=== PATIENT | male | born 1950 | race Caucasian/White ===

== ENCOUNTER 2017-04-29 13:40 | Emergency (ER) | payer MEDICARE, BC, OTHER ==
[2017-04-29] MEDS ORDERED: Lorazepam 2 MG/ML VIAL ONE (14:41)
[2017-04-29] MEDS ORDERED: Ketorolac Tromethamine 30 MG/ML VIAL ONE (14:42)
[2017-04-29] MEDS ORDERED: Dexamethasone 4 mg/ml Vial ONE (14:42)
--- NOTE | 2017-04-29 15:37 | RAD ---
LUMBAR SPINE 3 VIEWS: History Low back pain. COMPARISON: 08/20/15. FINDINGS: There are 5 lumbar-type vertebrae. Right pedicle screws and vertical nanette remain in place at the lum bosacral junction without perihardware lucency. Other pedicles are intact. Vertebral body height a nd alignment are maintained. Osteophytosis is present throughout the vertebral bodies and facets. IMPRESSION: Stable postoperative and degenerative changes of the lumbar spine. No evidence of compression fract ure. POS: [facility]
== END 2017-04-29 16:16 | disposition home or self-care (01) ==
LOC: ERS 13:40
DX: M54.10 Radiculopathy, site unspecified (principal); K21.9 Gastro-esophageal reflux disease without esophagitis; I10 Essential (primary) hypertension; Z79.82 Long term (current) use of aspirin; Z79.891 Long term (current) use of opiate analgesic; Z79.899 Other long term (current) drug therapy; Z87.891 Personal history of nicotine dependence
CPT/HCPCS: 72100; 96374; 96375; J1100; J1885; J2060; J2270

== ENCOUNTER 2017-06-20 13:45 | Outpatient (CLI) | payer MEDICARE, BC, OTHER ==
--- NOTE | 2017-06-21 09:18 | PET ---
PET IMAGING OF BRAIN: HISTORY: Dementia. Short-term memory loss. COMPARISON: None. TECHNIQUE: Patient was administered 11.28 mCi F18-FDG and whole imaging of the brain was performed. FINDINGS: There is homogeneous and expected distribution of the F18-FDG. No evidence of decreased radiotracer l ocalization. No evidence of decreased metabolic activity. IMPRESSION: No evidence of decreased metabolic activity. POS: [facility]
== END 2017-06-20 13:46 | disposition home or self-care (01) ==
LOC: PET 13:45
PROVIDERS: ATTEND Psychiatry & Neurology Neurology
DX: G31.1 Senile degeneration of brain, not elsewhere classified (principal)
CPT/HCPCS: 78608; A9552

== ENCOUNTER 2019-07-13 09:21 | Emergency (ER) | payer MEDICARE, BC, OTHER ==
[2019-07-13] MEDS ORDERED: Ketorolac Tromethamine 30 MG/ML VIAL ONE (09:44)
[2019-07-13 10:16] LABS: #Eosinphils 0.1 thou/uL (0.0-0.7); #Lymphocytes 0.9 thou/uL (1.20-3.40); #Monocytes 1.3 thou/uL (0.11-0.59); #Neutrophils 6.9 thou/uL (1.40-6.50); %Basophils 0.1 % (0.0-1.0); %Eosinophils 0.8 % (0.0-10.0); %Lymphocytes 9.7 % (21.0-51.0); %Monocytes 13.6 % (0.0-10.0); %Neutrophils 75.8 % (42.0-75.0); Mean Corpuscular HGB CONC 33.3 g/dL (32.0-36.0); Mean Corpuscular Hemoglobin 29.9 pg (27.0-31.0); Mean Corpuscular Volume 89.9 fL (78.0-98.0); Mean Platelet Volume 7.5 fL (7.4-10.4); Platelet Count 137 thou/uL (130-400); RBC Distribution Width 12.6 % (11.5-14.5); Red Blood Cell (RBC) Count 5.33 mill/uL (4.70-6.10); White Blood Cell (WBC) Count 9.1 thou/uL (4.8-10.8)
--- NOTE | 2019-07-13 10:30 | RAD ---
EXAM: Two views chest PROVIDED CLINICAL HISTORY: None COMPARISON: None FINDINGS: Cardiac and mediastinal silhouette appears within normal limits. Lungs appear free of significant opa city. No pleural fluid or pneumothorax apparent. Nonspecific gaseous distention of bowel. IMPRESSION: No evidence for an acute cardiopulmonary process.
[2019-07-13 10:31] LABS: ALT (SGPT) 17 U/L (8-55); AST (SGOT) 19 U/L (5-34); Albumin 4.3 g/dL (3.4-4.8); Alkaline Phosphatase 83 U/L (40-110); Anion Gap 16 mmol/L (10-20); BUN (Urea Nitrogen) 22 mg/dL (8.4-25.7); Bilirubin, Total 1.2 mg/dL (0.2-1.2); Calc. Creatinine Clearance 0 mL/min (70-130); Calcium 9.9 mg/dL (7.8-10.44); Carbon Dioxide 27 mmol/L (23-31); Chloride 102 mmol/L (98-107); Estimated GFR-MDRD 46; Glucose 200 mg/dL (80-115); Potassium 4.6 mmol/L (3.5-5.1); Protein, Total 7.3 g/dL (5.8-8.1); Sodium 140 mmol/L (136-145)
== END 2019-07-13 11:40 | disposition home or self-care (01) ==
LOC: ERS 09:21
DX: J11.1 Influenza due to unidentified influenza virus with other respiratory manifestations (principal); R73.9 Hyperglycemia, unspecified; K21.9 Gastro-esophageal reflux disease without esophagitis; I10 Essential (primary) hypertension; Z87.891 Personal history of nicotine dependence; Z79.82 Long term (current) use of aspirin; Z79.899 Other long term (current) drug therapy; Z79.891 Long term (current) use of opiate analgesic
CPT/HCPCS: 71046; 80053; 83605; 85025; 87040; 87804; 96361; 96374; J1885

== ENCOUNTER 2019-08-23 19:30 | Outpatient (CLI) | payer MEDICARE, BC, OTHER | END 2019-08-23 19:31 | disposition home or self-care (01) | LOC: SLEEPLAB 19:30 | PROVIDERS: ATTEND Internal Medicine Pulmonary Disease | DX: G47.33 Obstructive sleep apnea (adult) (pediatric) (principal); R53.83 Other fatigue; K21.9 Gastro-esophageal reflux disease without esophagitis; E66.9 Obesity, unspecified; R06.83 Snoring; I49.9 Cardiac arrhythmia, unspecified; G47.00 Insomnia, unspecified; G47.10 Hypersomnia, unspecified; G47.61 Periodic limb movement disorder; Z68.29 Body mass index [BMI] 29.0-29.9, adult | CPT/HCPCS: 95810 ==

== ENCOUNTER 2020-04-20 09:23 | Outpatient (CLI) | payer MEDICARE, BC, OTHER ==
[~2020-04-20 09:23] MED LIST: Magnevist 469MG/ML 20 ML VIAL ONE
--- NOTE | 2020-04-20 11:09 | MRI ---
MRI LUMBAR SPINE WITH AND WITHOUT CONTRAST: DATE: 04/20/2020 HISTORY: 69-year-old male with degenerative disc disease, lumbar, and leg pain, M 51.36, and M 79.606 COMPARISON: 08/20/2015 TECHNIQUE: Multiple sequences obtained in axial and sagittal planes, pre and post IV injection of gadolinium-bas ed contrast agent. FINDINGS: There are 5 lumbar-type vertebrae. Vertebral body heights are maintained. Normal bone marrow signal. Conus medullaris terminates at upper L2. T12-L1:Mild to moderate disc space narrowing. Mild disc bulge. No central or neural foraminal stenosi s. L1-2:Mild disc space narrowing. Mild disc bulge. Mild left neural foraminal stenosis. No high-grade r ight neural foraminal stenosis. No central spinal canal stenosis. L2-3:Disc space maintained. No central spinal canal stenosis. No high-grade neural foraminal stenosis . Mild disc bulge encroaches upon bilateral neural foramina slightly. L3-4:Disc space maintained. Mild disc bulge. Mild disc bulge encroachment and mild degenerative facet hypertrophy encroachment upon bilateral neural foramina, causing mild to moderate right neural foraminal stenosis. There is moderate left neural foraminal stenosis due to a superimposed focal left foraminal disc herniation.This lateral and far lateral neural foraminal stenosis appears either similar to or minimally worse than before. No central spinal canal stenosis. Moderate ligamentum flav um thickening. L4-5:No right neural foraminal stenosis. Mild to moderate left neural foraminal stenosis. No central spinal canal stenosis. Mild disc bulge. Mild disc space narrowing. L5-S1:Unilateral right L5 and S1 pedicle screws. Mild to moderate disc space narrowing. Mixed signal material within the disc space probably represents osseous bridges between the endplates. Circumferential disc/osteophyte complex, with right paracentral focal component that indents the righ t ventral aspect of thecal sac, chronically abutting the right S1 nerve root. Despite this, no significant central spinal canal stenosis. Partial ankylosis of left facet joint, and probable total ankylosis of right facet joint. Moderate right and mild to moderate left neural foraminal stenosis. No significant interval change identified. IMPRESSION: 1) old posterior lumbar fusion with unilateral right pedicle screws at L5-S1, resulting in successful ankylosis. 2) moderate right neural foraminal stenosis at L5-S1. 3) no central spinal canal stenosis at any level. 4) no major interval change since 08/20/2015.
--- NOTE | 2020-04-20 11:14 | RAD ---
Exam: 2 views lumbar spine COMPARISON: 04/29/2017 HISTORY: Degenerative disc disease. Leg pain. FINDINGS: Redemonstration of unilateral right-sided transpedicular screw at L5 and S1. No perihardwar e lucency. Stable degenerative disc disease at L5-S1. Vertebral body heights are maintained. No fracture IMPRESSION: Stable fusion changes at L5-S1.
== END 2020-04-20 09:24 | disposition home or self-care (01) ==
LOC: BICMRI 09:23
PROVIDERS: ATTEND Neurological Surgery
DX: M51.36 Other intervertebral disc degeneration, lumbar region (principal); M79.606 Pain in leg, unspecified; M48.07 Spinal stenosis, lumbosacral region; M43.27 Fusion of spine, lumbosacral region; Z98.1 Arthrodesis status
CPT/HCPCS: 72100; 72158; 82565; A9579

== ENCOUNTER 2020-05-12 13:28 | Outpatient (CLI) | payer MEDICARE, BC, OTHER ==
--- NOTE | 2020-05-12 15:01 | MRI ---
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 Calvarium: Appropriate T1 marrow signal intensity Midline brain parenchyma: Unremarkable Cerebrum:No parenchymal mass, mass effect or midline shift. Age-appropriate brain volume. Cortical gr ay-white matter differentiation is preserved. Scattered T2 and FLAIR white matter hyperintensities due to chronic small vessel ischemic change. Ventricles: No evidence of hydrocephalus. Sinuses and mastoid air cells: Mild mucosal thickening of the ethmoid air cells and frontal sinuses Diffusion: Central arterial flow is maintained. Absent restricted diffusion. Postcontrast images: No pathologic enhancement of the brain parenchyma. IMPRESSION: 1. Age-appropriate atrophy. 2. Absent restricted diffusion. No acute infarct. 3. No pathologic enhancement of the brain parenchyma.
== END 2020-05-12 13:29 | disposition home or self-care (01) ==
LOC: TBSIIMAG 13:28
PROVIDERS: ATTEND Neurological Surgery
DX: R26.81 Unsteadiness on feet (principal); G31.89 Other specified degenerative diseases of nervous system
CPT/HCPCS: 70553; 82565; A9579

== ENCOUNTER 2020-11-23 00:05 | Emergency (ER) | payer MEDICARE, BC, OTHER ==
[2020-11-23 01:55] LABS: Anion Gap 14 mmol/L (10-20); BUN (Urea Nitrogen) 29 mg/dL (8.4-25.7); CK (CPK) 92 U/L (30-200); Calc. Creatinine Clearance 0 mL/min (70-130); Calcium 9.4 mg/dL (7.8-10.44); Carbon Dioxide 23 mmol/L (23-31); Chloride 107 mmol/L (98-107); Potassium 4.5 mmol/L (3.5-5.1); Sodium 139 mmol/L (136-145)
[2020-11-23 01:56] LABS: Glucose 111 mg/dL (83-110)
== END 2020-11-23 02:37 | disposition home or self-care (01) ==
LOC: ERS 00:05
DX: M62.838 Other muscle spasm (principal); K21.9 Gastro-esophageal reflux disease without esophagitis; I10 Essential (primary) hypertension; Z87.891 Personal history of nicotine dependence; Z79.899 Other long term (current) drug therapy; Z79.82 Long term (current) use of aspirin
CPT/HCPCS: 36415; 80048; 82550

== ENCOUNTER 2020-12-28 06:53 | Outpatient (CLI) | payer MEDICARE, BC, OTHER ==
[2020-12-23 15:42] VITALS: BMI 30.7
[2020-12-28 07:59] VITALS: BP 148/99; TEMP 97.9
[2020-12-28] MEDS ORDERED: Iopamidol-M 200 41% 20 ML VIAL ONE (09:08)
== END 2020-12-28 09:50 | disposition home or self-care (01) ==
LOC: RAD 06:53
PROVIDERS: ATTEND Neurological Surgery
DX: M54.16 Radiculopathy, lumbar region (principal); M48.061 Spinal stenosis, lumbar region without neurogenic claudication; M48.07 Spinal stenosis, lumbosacral region; Z98.1 Arthrodesis status
CPT/HCPCS: 62304; 72132

== ENCOUNTER 2022-06-08 08:17 | Outpatient (CLI) | payer MEDICARE, BC, OTHER ==
[2022-06-08] MEDS ORDERED: Magnevist 469MG/ML 20 ML VIAL ONE (11:25)
== END 2022-06-08 08:18 | disposition home or self-care (01) ==
LOC: TBSIIMAG 08:17
PROVIDERS: ATTEND Urology
DX: R97.20 Elevated prostate specific antigen [PSA] (principal)
CPT/HCPCS: 72197; A9579

== ENCOUNTER 2022-07-12 07:57 | Outpatient (CLI) | payer MEDICARE, BC, OTHER ==
[2022-07-12] MEDS ORDERED: Iopamidol 370 76% 100 ML VIAL ONE (15:56)
== END 2022-07-12 07:58 | disposition home or self-care (01) ==
LOC: CT 07:57
PROVIDERS: ATTEND Urology
DX: R31.0 Gross hematuria (principal); N20.0 Calculus of kidney; N28.1 Cyst of kidney, acquired; N40.0 Benign prostatic hyperplasia without lower urinary tract symptoms; N32.89 Other specified disorders of bladder; Z98.890 Other specified postprocedural states
CPT/HCPCS: 74178; 82565; Q9967

== ENCOUNTER 2023-03-08 14:53 | Inpatient (IN) | payer MEDICARE, BC, OTHER ==
[~2023-03-08 14:53] MED LIST changes: +Iopamidol-370 76% 500 ML MDV (1 ML CHARGE) ONE; -Magnevist 469MG/ML 20 ML VIAL ONE
[2023-03-08 15:49] LABS: #Monocytes 1.4 thou/uL (0.11-0.59); #Neutrophils 5.2 thou/uL (1.40-6.50); %Basophils 0.3 % (0.0-1.0); %Eosinophils 0.5 % (0.0-10.0); %Lymphocytes 10.8 % (21.0-51.0); %Monocytes 18.3 % (0.0-10.0); %Neutrophils 69.7 % (42.0-75.0); Hematocrit 45.2 % (42.0-52.0); Hemoglobin 14.9 g/dL (14.0-18.0); Mean Corpuscular Hemoglobin 28.9 pg (27.0-31.0); Mean Corpuscular Volume 87.8 fl (78.0-98.0); Mean Platelet Volume 9.8 fL (7.4-10.4); Platelet Count 148 10x3/uL (130-400); RBC Distribution Width 13.1 % (11.5-14.5); Red Blood Cell (RBC) Count 5.15 mill/uL (4.70-6.10); White Blood Cell (WBC) Count 7.4 10x3/uL (4.8-10.8)
[2023-03-08 16:17] LABS: Bacteria/HPF 4+ HPF (None Seen); Bilirubin Negative (Negative); Blood, Urine 3+ (Negative); CAUTI Indications for Culture Pelvic or flank pain; Clarity Turbid (Clear); Glucose, Urine (Dipstick) Normal (Negative); Ketone, Urine Negative (Negative); Leukocyte 500 Leu/uL (Negative); Nitrite 1+ (Negative); Protein, Urine (Dipstick) 200 mg/dL (Neg-Trace); RBC/HPF 21-50 HPF (0-3); Specific Gravity, Urine 1.016 (1.002-1.036); Squamous Epithelial None Seen HPF (0-3); Urobilinogen Normal mg/dL (Less than 2); WBC/HPF Greater than 50 HPF (0-3)
[2023-03-08 16:18] LABS: Urine Culture Reflex Yes Yes
[2023-03-08 16:24] LABS: ALT (SGPT) 21 U/L (8-55); AST (SGOT) 43 U/L (5-34); Albumin 3.4 g/dL (3.4-4.8); Alkaline Phosphatase 59 U/L (40-110); Anion Gap 15 mmol/L (10-20); BUN (Urea Nitrogen) 27 mg/dL (8.4-25.7); Bilirubin, Total 0.7 mg/dL (0.2-1.2); Calc. Creatinine Clearance 0 mL/min (70-130); Calcium 9.5 mg/dL (7.8-10.44); Carbon Dioxide 25 mmol/L (23-31); Chloride 100 mmol/L (98-107); Estimated GFR 41; Globulin 4.3 g/dL (2.4-3.5); Glucose 94 mg/dL (83-110); Lipase 49 U/L (8-78); Potassium 5.5 mmol/L (3.5-5.1); Protein, Total 7.7 g/dL (5.8-8.1); Sodium 134 mmol/L (136-145)
[2023-03-08] MEDS ORDERED: CEFAZOLIN 2 GM VIAL ONE (17:11)
[2023-03-08] MEDS ORDERED: CEFAZOLIN 1 GM VIAL ONE (17:12)
[2023-03-08] MEDS ORDERED: Aspirin 81 mg Enteric Coated Tablet PO SCH (19:00)
[2023-03-08] MEDS ORDERED: Metoprolol Tartrate 50 MG TAB PO SCH (19:00)
[2023-03-08 20:39] VITALS: BMI 29.5
[2023-03-08] MEDS: cefTRIAXone\\ROCEPHIN 1 GM in Sodium Chloride 0.9% 100 ML IVPB SCH (21:50)
[2023-03-08] MEDS: Sodium Chloride 0.9% 1,000 ML IV SCH (21:50)
[2023-03-08] MEDS: Amitriptyline HCl 25 MG TAB PO SCH (21:50)
[2023-03-08] MEDS: Atorvastatin Calcium 10 MG TAB PO SCH (21:51)
[2023-03-09] MEDS: Sodium Chloride 0.9% 1,000 ML IV SCH ×2 (08:45→21:09)
[2023-03-09] MEDS: Aspirin 81 mg Enteric Coated Tablet PO SCH (08:46)
[2023-03-09 08:54] LABS: #Eosinphils 0.1 thou/uL (0.0-0.7); #Monocytes 1.1 thou/uL (0.11-0.59); #Neutrophils 4.2 thou/uL (1.40-6.50); %Basophils 0.5 % (0.0-1.0); %Eosinophils 1.4 % (0.0-10.0); %Lymphocytes 14.2 % (21.0-51.0); %Monocytes 17.6 % (0.0-10.0); %Neutrophils 65.8 % (42.0-75.0); Hematocrit 39.5 % (42.0-52.0); Hemoglobin 12.7 g/dL (14.0-18.0); Mean Corpuscular HGB CONC 32.2 g/dL (32.0-36.0); Mean Corpuscular Hemoglobin 29.2 pg (27.0-31.0); Mean Platelet Volume 9.4 fL (7.4-10.4); Platelet Count 132 10x3/uL (130-400); Red Blood Cell (RBC) Count 4.35 mill/uL (4.70-6.10); White Blood Cell (WBC) Count 6.4 10x3/uL (4.8-10.8)
[2023-03-09] MEDS ORDERED: Niacin SR 500 MG CAP PO SCH (09:00)
[2023-03-09 09:01] LABS: Mean Corpuscular Volume 90.8 fl (78.0-98.0)
[2023-03-09 09:15] LABS: Anion Gap 10 mmol/L (10-20); BUN (Urea Nitrogen) 26 mg/dL (8.4-25.7); Calc. Creatinine Clearance 53 mL/min (70-130); Calcium 8.7 mg/dL (7.8-10.44); Carbon Dioxide 23 mmol/L (23-31); Chloride 105 mmol/L (98-107); Estimated GFR 51; Glucose 131 mg/dL (83-110); Potassium 4.2 mmol/L (3.5-5.1); Sodium 134 mmol/L (136-145)
[2023-03-09] MEDS ORDERED: Hydrocortisone 2.5% Cream 30 GM TUBE TOP PRN (14:32)
[2023-03-09] MEDS ORDERED: Senokot S 8.6-50 MG TAB PO SCH (14:45)
[2023-03-09] MEDS ORDERED: Simethicone Chewable 80 MG TAB PO SCH (14:45)
[2023-03-09] MEDS: Simethicone Chewable 80 MG TAB PO SCH ×2 (18:47→21:09)
[2023-03-09] MEDS: Amitriptyline HCl 25 MG TAB PO SCH (21:08)
[2023-03-09] MEDS: Atorvastatin Calcium 10 MG TAB PO SCH (21:08)
[2023-03-09] MEDS: cefTRIAXone\\ROCEPHIN 1 GM in Sodium Chloride 0.9% 100 ML IVPB SCH (21:08)
[2023-03-09] MEDS: Senokot S 8.6-50 MG TAB PO SCH (21:08)
[2023-03-10 06:46] LABS: Anion Gap 10 mmol/L (10-20); BUN (Urea Nitrogen) 22 mg/dL (8.4-25.7); Calc. Creatinine Clearance 61 mL/min (70-130); Calcium 8.7 mg/dL (7.8-10.44); Carbon Dioxide 26 mmol/L (23-31); Chloride 105 mmol/L (98-107); Estimated GFR 61; Glucose 86 mg/dL (83-110); Potassium 4.2 mmol/L (3.5-5.1); Sodium 137 mmol/L (136-145)
[2023-03-10 07:52] VITALS: TEMP 97.5
[2023-03-10] MEDS ORDERED: Diazepam 2 MG TAB PO SCH (09:00)
[2023-03-10] MEDS: Simethicone Chewable 80 MG TAB PO SCH ×2 (09:15→12:15)
[2023-03-10] MEDS: Sodium Chloride 0.9% 1,000 ML IV SCH (09:15)
[2023-03-10] MEDS: Aspirin 81 mg Enteric Coated Tablet PO SCH (09:15)
[2023-03-10] MEDS: Senokot S 8.6-50 MG TAB PO SCH (09:15)
[2023-03-10 12:03] VITALS: BP 129/86
== END 2023-03-10 13:06 | disposition home or self-care (01) | DRG 699 ==
LOC: ERS 14:53 → T4-B 18:32 → OBSVTOIN 03-09 13:30
PROVIDERS: ADMIT Internal Medicine; ATTEND Family Medicine
DX: T83.718A Erosion of other implanted mesh to organ or tissue, initial encounter (principal); N13.6 Pyonephrosis; N30.01 Acute cystitis with hematuria; N17.9 Acute kidney failure, unspecified; K21.9 Gastro-esophageal reflux disease without esophagitis; N18.30 Chronic kidney disease, stage 3 unspecified; E87.5 Hyperkalemia; B96.20 Unspecified Escherichia coli [E. coli] as the cause of diseases classified elsewhere; I12.9 Hypertensive chronic kidney disease with stage 1 through stage 4 chronic kidney disease, or unspecified chronic kidney disease; Z88.1 Allergy status to other antibiotic agents; Z88.8 Allergy status to other drugs, medicaments and biological substances; Z90.89 Acquired absence of other organs; Z79.82 Long term (current) use of aspirin; Z79.899 Other long term (current) drug therapy; Z98.1 Arthrodesis status; Z90.79 Acquired absence of other genital organ(s); Z98.49 Cataract extraction status, unspecified eye; Z87.891 Personal history of nicotine dependence
CPT/HCPCS: 36415; 74177; 80048; 80053; 81001; 83690; 85025; 87040; 87077; 87086; 87186; 93005; J0690; J0696; J3490; J7050; Q9967

== ENCOUNTER 2023-04-28 07:50 | Outpatient (CLI) | payer MEDICARE, BC, OTHER ==
[2023-04-28] MEDS ORDERED: Iopamidol 370 76% 100 ML VIAL ONE (09:56)
== END 2023-04-28 07:51 | disposition home or self-care (01) ==
LOC: CT 07:50
PROVIDERS: ATTEND Urology
DX: N40.1 Benign prostatic hyperplasia with lower urinary tract symptoms (principal); R31.0 Gross hematuria; N39.41 Urge incontinence; R97.20 Elevated prostate specific antigen [PSA]; N28.89 Other specified disorders of kidney and ureter; N20.0 Calculus of kidney; N32.89 Other specified disorders of bladder; Z98.890 Other specified postprocedural states
CPT/HCPCS: 74178; 82565; Q9967

== ENCOUNTER 2023-12-15 05:24 | Emergency (ER) | payer MEDICARE, BC, OTHER ==
[2023-12-15] MEDS ORDERED: Dexamethasone 10 MG/ML VIAL ONE (05:55)
[2023-12-15] MEDS ORDERED: fentaNYL 50 mcg/mL 1 mL Vial ONE (05:55)
[2023-12-15] MEDS ORDERED: Ketorolac Tromethamine 30 MG (1 mL) VIAL ONE (05:56)
== END 2023-12-15 09:08 | disposition home or self-care (01) ==
LOC: ERS 05:24
DX: M62.838 Other muscle spasm (principal); I10 Essential (primary) hypertension; Z87.891 Personal history of nicotine dependence; Z79.82 Long term (current) use of aspirin; Z79.899 Other long term (current) drug therapy
CPT/HCPCS: 72125; 96374; 96375; 99283; J3010; J1100; J1885

== ENCOUNTER 2023-12-28 05:38 | Emergency (ER) | payer MEDICARE, BC, OTHER ==
[2023-12-28] MEDS ORDERED: Ketorolac Tromethamine 30 MG (1 mL) VIAL ONE (06:11)
[2023-12-28] MEDS ORDERED: Lidocaine 4% Patch TD SCH (06:15)
[2023-12-28] MEDS ORDERED: Transdermal Patch Removal TOP SCH (18:15)
== END 2023-12-28 06:48 | disposition home or self-care (01) ==
LOC: ERS 05:38
DX: M54.2 Cervicalgia (principal); I10 Essential (primary) hypertension; K21.9 Gastro-esophageal reflux disease without esophagitis; Z87.891 Personal history of nicotine dependence; Z55.6 Problems related to health literacy; Z79.82 Long term (current) use of aspirin; Z79.899 Other long term (current) drug therapy
CPT/HCPCS: 96372; 99283; J1885

== ENCOUNTER 2024-04-11 08:45 | Outpatient (CLI) | payer MEDICARE, BC, OTHER | END 2024-04-11 08:46 | disposition home or self-care (01) | LOC: PET 08:45 | PROVIDERS: ATTEND Psychiatry & Neurology Neurology | DX: F03.90 Unspecified dementia, unspecified severity, without behavioral disturbance, psychotic disturbance, mood disturbance, and anxiety (principal) | CPT/HCPCS: 78803; A9552 ==

== ENCOUNTER 2024-08-07 11:33 | Outpatient (CLI) | payer MEDICARE, BC, OTHER | END 2024-08-07 11:34 | disposition home or self-care (01) | LOC: RAD 11:33 | PROVIDERS: ATTEND Internal Medicine | DX: R06.09 Other forms of dyspnea (principal); J44.9 Chronic obstructive pulmonary disease, unspecified; I51.7 Cardiomegaly | CPT/HCPCS: 71046 ==

== ENCOUNTER 2024-09-26 10:40 | Outpatient (CLI) | payer MEDICARE, BC, OTHER | END 2024-09-26 10:41 | disposition home or self-care (01) | LOC: ULT 10:40 | PROVIDERS: ATTEND Nurse Practitioner Family | DX: R10.30 Lower abdominal pain, unspecified (principal) | CPT/HCPCS: 76999 ==

== ENCOUNTER 2025-05-29 10:19 | Outpatient (CLI) | payer MEDICARE, BC, OTHER ==
[2025-05-29 11:16] LABS: Estimated GFR - POC 48.0
== END 2025-05-29 10:20 | disposition home or self-care (01) ==
LOC: SCSMRI 10:19
PROVIDERS: ATTEND Urology
DX: N40.1 Benign prostatic hyperplasia with lower urinary tract symptoms (principal)
CPT/HCPCS: 36415; 72197; 82565

== ENCOUNTER 2025-06-27 10:05 | Outpatient (CLI) | payer MEDICARE, BC, OTHER ==
[2025-06-27] MEDS ORDERED: Iopamidol 370 76% 100 ML VIAL ONE (11:14)
== END 2025-06-27 10:06 | disposition home or self-care (01) ==
LOC: CT 10:05
PROVIDERS: ATTEND Urology
DX: N28.89 Other specified disorders of kidney and ureter (principal); N32.89 Other specified disorders of bladder
CPT/HCPCS: 36415; 74177; 82565; Q9967